=== PATIENT | female | born 1945 | race Caucasian/White ===

== ENCOUNTER → 2016-08-22 | Outpatient (CLI) | payer MEDICARE, OTHER ==
[~2016-08-22] MED LIST: ACLI400A2 IH; ALBU0.63 IH; ALBU90AE IH; ASPI-999 PO; BARIUM SUSPENSION 2.1% (VANILLA SILQ) 450 ML PO ONE; CALC600T12 PO; CATHETER FLUSH 10 ML SYR IV PRN; CETI10TA20 PO; CIPR-225 PO; CYCL1DRO OP; FLUT1DIS27 IH; GABA600T2 PO; HYDR25TA4 PO; IOHEXOL 350 MG/ML 100 ML (OMNIPAQUE 350) VIAL IV ONE; LUTE6CAP2 PO; METO-333 PO; METR500T PO; MONT10TA21 PO; MULT-35 PO; NS 100 ML (IVPB) BAG IV ONE; OMEGA XL PO; OMG1KC PO
--- NOTE | 2016-08-22 12:04 | Diagnostic Imaging Report ---
PROCEDURE: CT chest, abdomen, and pelvis with contrast. TECHNIQUE: Multiple contiguous axial images were obtained through the chest, abdomen, and pelvis after the administration of intravenous contrast. INDICATION: Bloating, bowel dysfunction, elevated tumor markers. Chest: A few areas of nonsolid nodularity likely scarring some of which are accompanied by cyst formation are present in the lung bases having a chronic appearance. No dominant lung mass and no findings felt suggestive of acute pneumonia. There are features of COPD. No oliver bronchiectasis. There is no hilar, mediastinal, or axillary lymphadenopathy. The aorta is calcified but patent and nonaneurysmal. There is a tiny hiatal hernia. There is healed or healing non-acute left rib fracture laterally at the eighth level. No acute chest wall pathology. Abdomen/ pelvis: Liver, gallbladder, bile ducts, spleen, adrenals, and pancreas negative. There are multiple bilateral renal cortical cysts with no enhancing or solid renal mass. There is no hydronephrosis. Some thickening of the king of the sigmoid colon over a length of at least 7 cm. There is some congestion and hyperdensity of the subtending mesentery. There is some adjacent rounded perisigmoidal lymph nodes measuring 7.5 mm maximal; at least three of these are present. I am uncertain if this is inflammatory or neoplastic. If not already performed, consider endoscopy. No perforation. This does not have the typical features of diverticulitis. There is no appendicitis. There is no ascites, abscess, hematoma, or fluid collection. The urinary bladder unremarkable. No pneumatosis or free air. There is aortoiliac and mesenteric atherosclerotic disease. There is severe plaque in the right greater than left external iliacs with likely hemodynamically significant degrees of stenosis. There were no findings suggestive of acute solid or hollow visceral end organ involvement by ischemia. IMPRESSION: Chest: COPD and chronic areas of parenchymal scarring. No adenopathy or effusion. Small hiatal hernia. Abdomen: Benign renal cysts. No abdominal adenopathy, obstruction, inflammatory process, or mass. Atherosclerotic disease without aneurysm. Pelvis: No abscess, perforation, or obstruction. Severe iliac atherosclerosis with likely hemodynamically significant stenoses of the bilateral external iliacs. Abnormal appearance of the thickened somewhat irregular-appearing sigmoid with perisigmoidal subcentimeter lymph nodes. This could be inflammatory or neoplastic. Consider endoscopic correlation. No other potential malignancy found at this exam. Dictated by: Dictated on workstation # [id number]
== END ==
LOC: RAD 09:13
PROVIDERS: ATTEND Internal Medicine Hematology & Oncology
DX: J44.9 Chronic obstructive pulmonary disease, unspecified (principal); C50.919 Malignant neoplasm of unspecified site of unspecified female breast; R97.8 Other abnormal tumor markers; R19.4 Change in bowel habit
CPT/HCPCS: 71260; 74177

== ENCOUNTER 2016-08-28 05:40 | Outpatient (CLI) | payer MEDICARE, OTHER ==
[~2016-08-28] VITALS: Ht 152.4 cm; Wt 49.9 kg
[2016-08-28] MEDS ORDERED: HYDR25TA4 PO (13:34)
[2016-08-28] MEDS ORDERED: METO-333 PO (13:34)
[2016-08-28] MEDS ORDERED: MULT-35 PO (13:34)
[2016-08-28] MEDS ORDERED: ASPI-999 PO (13:34)
[2016-08-28] MEDS ORDERED: FLUT1DIS27 IH (13:34)
[2016-08-28] MEDS ORDERED: MONT10TA21 PO (13:34)
[2016-08-28] MEDS ORDERED: ACLI400A2 IH (13:34)
[2016-08-28] MEDS ORDERED: GABA600T2 PO (13:34)
[2016-08-28] MEDS ORDERED: LUTE6CAP2 PO (13:34)
[2016-08-28] MEDS ORDERED: CETI10TA20 PO (13:34)
[2016-08-28] MEDS ORDERED: OMEGA XL PO (13:34)
[2016-08-28] MEDS ORDERED: ALBU0.63 IH (13:34)
[2016-08-28] MEDS ORDERED: ALBU90AE IH (13:34)
[2016-08-28] MEDS ORDERED: CALC600T12 PO (13:34)
[2016-08-28] MEDS ORDERED: OMG1KC PO (13:34)
[2016-08-28] MEDS ORDERED: CYCL1DRO OP (13:34)
[2016-08-29] MEDS ORDERED: CIPR-225 PO (13:11)
[2016-08-29] MEDS ORDERED: METR500T PO (13:11)
== END 2016-08-28 13:52 ==
LOC: PREOP 05:40
PROVIDERS: ATTEND Surgery
DX: Z01.818 Encounter for other preprocedural examination (principal); K21.9 Gastro-esophageal reflux disease without esophagitis; R19.4 Change in bowel habit

== ENCOUNTER 2016-08-29 10:33 | Day surgery (SDC) | payer MEDICARE, OTHER ==
[~2016-08-29] VITALS: Ht 152.4 cm; Wt 49.9 kg
[~2016-08-29 10:33] MED LIST changes: -BARIUM SUSPENSION 2.1% (VANILLA SILQ) 450 ML PO ONE; -CATHETER FLUSH 10 ML SYR IV PRN; -CIPR-225 PO; -IOHEXOL 350 MG/ML 100 ML (OMNIPAQUE 350) VIAL IV ONE; -METR500T PO; -NS 100 ML (IVPB) BAG IV ONE
[2016-08-29 10:40] VITALS: BP 141/68
[2016-08-29] MEDS ORDERED: NS IV 1000 ML 1,000 ML IV STA (10:40)
[2016-08-29] MEDS ORDERED: HURRICAINE EXT TUBE (BENZOCAINE) XX PRN (10:45)
[2016-08-29] MEDS ORDERED: NS IV 1000 ML 1,000 ML ONE (10:47)
[2016-08-29] MEDS ORDERED: MIDAZOLAM 2 MG/2 ML (VERSED) VIAL ONE (11:08)
[2016-08-29] MEDS ORDERED: proPOfol 200 MG/20 ML (DIPRIVAN) VIAL IV ONE (11:08)
--- NOTE | 2016-08-29 11:14 | Progress Note-Pre Operative ---
Pre-Operative Progress Note H&P Reviewed The H&P was reviewed, patient examined and no changes noted. Date H&P Reviewed: Aug 29, 2016 Time H&P Reviewed: 11:13 Pre-Operative Diagnosis: change in bowel habits, radiological changes on ct, anemia RENEE GRAVES DO Aug 29, 2016 11:13 am
--- NOTE | 2016-08-29 11:52 | Progress Note-Post Operative ---
Post-Operative Progess Note Surgeon (s)/Crate Liner (s) Surgeon RENEE GRAVES DO Crate Liner: 0 Pre-Operative Diagnosis change in bowel habits, radiological changes on ct, anemia Post-Operative Diagnosis small hiatal hernia, colon polyp cecum, inflammation area of cecum, diverticulitis of sigmoid Post-Op Procedure Note Date of Procedure: Aug 29, 2016 Name of Procedure Performed: egd and colonoscopy c hot bx polypectomy x 1, hot biopsy cecum, cold biosies of sigmoid colon Description of the Procedure: see note Findings of the Procedure see note Anesthesia Type per mda Estimated blood loss (mL): none Specimen(s) collected/removed cecum x2 sigmoid biopsies RENEE GRAVES DO Aug 29, 2016 11:52 am
[2016-08-29 12:00] VITALS: BP 132/68
[2016-08-29 13:00] VITALS: BP 150/58
[2016-08-29] MEDS ORDERED: CIPR-225 PO (13:11)
[2016-08-29] MEDS ORDERED: METR500T PO (13:11)
--- NOTE | 2016-08-29 13:12 | Discharge Inst-Simple/Standard ---
Discharge Inst-Standard Discharge Medications New, Converted or Re-Newed RX: Transmitted to Pharmacy Patient Instructions/Follow Up Plan of Care/Instructions/FU: Patient to follow up with Dr. Flor in clinic 2 weeks Take meds as directed. Call clinic with any questions. Clear liquids for 2 more days and then advance diet as tolerated. Activity as Tolerated: Yes Discharge Diet: Other Diet (clear liquids for 2 more days. ) BLADIMIR SWANSON APRN Aug 29, 2016 13:12
[2016-08-29 13:46] VITALS: BP 150/58
--- NOTE | 2016-08-31 09:36 | PROCEDURE REPORT ---
PROCEDURE PHYSICIAN: RENEE GRAVES DATE OF PROCEDURE: 08/29/2016 PREOPERATIVE DIAGNOSIS: Change in bowel habits, radiological changes on CT scan, anemia. POSTOPERATIVE DIAGNOSES: 1. Small hiatal hernia. 2. Colon polyp of the cecum. 3. Inflammation of the area of the cecum. 4. Diverticulitis of the sigmoid colon. PROCEDURE: 1. EGD. 2. Colonoscopy with hot biopsy polypectomy x1, hot biopsy of cecum and cold biopsies of the sigmoid colon. SURGEON: Chacho. ANESTHESIA: Per MDA soon. ESTIMATED BLOOD LOSS: None. COMPLICATIONS: None. INDICATIONS: The patient is a 71-year-old female who has had change in bowel habits and had radiological changes on CT scan and found to be anemic. She understands the risks and benefits of procedures and wished to proceed with procedures. Consent was signed on the chart. PROCEDURE: The patient was taken to the endoscopy suite, placed in left lateral recumbent position. Time out was performed. The scope was then inserted in the mouth down the esophagus, stomach and into the duodenum. There were no polyps, masses or ulcerations of the duodenum. The scope was slowly retracted back to the stomach where it was further insufflated. There were no polyps, masses or ulcerations or erythematous changes in the stomach where it was also retroflexed noting a small hiatal hernia. No other pathology noted. The scope was returned its normal position and slowly withdrawn back to the distal esophagus. There are no polyps, masses or ulcerations present within the esophagus and the scope was slowly retracted with completely removed noting no other pathology. COLONOSCOPY: Digital rectal exam was performed. There is no palpable polyps, masses, ulcerations. The scope was inserted in the rectum and advanced all of the way to the cecum with minimal difficulty. Prep was adequate. Once in the cecum there was a small polyp near the appendiceal orifice, hot biopsy polypectomy was performed. Just next to this area of the cecum there was also slight inflammation that is slightly raised either a flat polyp or just inflammation. Hot biopsy was performed. The scope was then slowly retracted back. There were no polyps, masses, ulcerations in the ascending colon, transverse colon, and descending colon. Within the sigmoid colon, there is an area of approximately 15 cm segment with some diverticulosis within this area that appears to be acute diverticulitis. There is inflammation circumferentially through this area. Cold biopsies were obtained through this area. No other pathology is noted. The scope was slowly retracted back until in the rectum, where it was also retroflexed noting no other pathology. The scope returned its normal position and slowly withdrawn until completely removed. RECOMMENDATIONS: The patient will be started on 10 days of Cipro and Flagyl. She is to stay on a clear liquid diet for 2 more days and then slowly advance diet as tolerated. If she has any worsening of condition, she should be reevaluated at that time. The patient will follow-up in the office in approximately 2 weeks. Further recommendations pending pathology results. Job ID: [id number] Dictated Date: 08/29/2016 11:56:11 Inside Wirer Date: 08/31/2016 09:17:39 / arlene
== END 2016-08-29 13:20 | disposition home or self-care (01) ==
LOC: ENDO 10:33
PROVIDERS: ATTEND Surgery
DX: D12.0 Benign neoplasm of cecum (principal); K52.9 Noninfective gastroenteritis and colitis, unspecified; K57.32 Diverticulitis of large intestine without perforation or abscess without bleeding; K21.9 Gastro-esophageal reflux disease without esophagitis; K44.9 Diaphragmatic hernia without obstruction or gangrene
CPT/HCPCS: 88305

== ENCOUNTER 2016-09-12 12:55 | Outpatient (RCR) | payer MEDICARE, OTHER ==
[~2016-09-12 12:55] MED LIST changes: +CIPR-225 PO; +METR500T PO
== END 2016-09-26 | disposition home or self-care (01) ==
LOC: ONC 12:55
PROVIDERS: ATTEND Internal Medicine Hematology & Oncology
DX: Z08 Encounter for follow-up examination after completed treatment for malignant neoplasm (principal); Z85.3 Personal history of malignant neoplasm of breast; M81.0 Age-related osteoporosis without current pathological fracture; I10 Essential (primary) hypertension; Z90.11 Acquired absence of right breast and nipple; Z79.899 Other long term (current) drug therapy
CPT/HCPCS: 99213

== ENCOUNTER 2016-09-13 10:51 | Outpatient (RCR) | payer MEDICARE, OTHER | END 2016-12-12 | disposition home or self-care (01) | LOC: LAB 10:51 | PROVIDERS: ATTEND Surgery | DX: R19.7 Diarrhea, unspecified (principal) | CPT/HCPCS: 87045; 87046; 87328; 87329; 87493 ==

== ENCOUNTER 2016-10-17 13:11 | Outpatient (RCR) | payer MEDICARE, OTHER | END 2017-01-15 | disposition home or self-care (01) | LOC: ONC 13:11 | PROVIDERS: ATTEND Internal Medicine Hematology & Oncology | DX: Z08 Encounter for follow-up examination after completed treatment for malignant neoplasm (principal); Z85.3 Personal history of malignant neoplasm of breast; M81.0 Age-related osteoporosis without current pathological fracture; I10 Essential (primary) hypertension; Z90.11 Acquired absence of right breast and nipple; Z79.899 Other long term (current) drug therapy | CPT/HCPCS: 99213 ==

== ENCOUNTER → 2017-01-11 | Outpatient (CLI) | payer MEDICARE, OTHER ==
[~2017-01-11] MED LIST changes: +CATHETER FLUSH 10 ML SYR IV PRN; +IOHEXOL 350 MG/ML 150 ML (OMNIPAQUE 350) VIAL IV ONE; +NS 100 ML (IVPB) BAG IV ONE
[2017-01-11 12:18] LABS: CREATININE SERUM 0.94 MG/DL (0.60-1.30)
--- NOTE | 2017-01-11 13:22 | Diagnostic Imaging Report ---
PROCEDURE: CT angiography of the chest with contrast. TECHNIQUE: Multiple contiguous axial images were obtained through the chest after uneventful bolus administration of intravenous contrast. Reconstructed CTA MIP acquisitions were also performed. INDICATION: Shortness of breath. The pulmonary arterial branches are well opacified and confirmed widely patent. No filling defect or PE. The thoracic aorta is patent and nonacute. There is no thoracic effusion or pneumothorax. No focal pulmonary consolidation. There is air trapping and COPD chronic. No dominant mass. Small subcentimeter subpleural scar in the right upper lobe posterolaterally stable from exam of August 2016. Visualized upper abdomen shows bilateral renal cortical cysts partly visualized with no acute abnormality. IMPRESSION: Widely patent pulmonary arteries, chronic COPD, and subpleural scar in the right upper lobe all stable. Benign renal cysts. No acute abnormality. Dictated by: Dictated on workstation # [id number]
== END ==
LOC: RAD 11:38
PROVIDERS: ATTEND Nurse Practitioner Family
DX: J44.9 Chronic obstructive pulmonary disease, unspecified (principal)
CPT/HCPCS: 36415; 71275; 82565; 84520

== ENCOUNTER → 2017-01-17 | Outpatient (CLI) | payer MEDICARE, OTHER ==
[~2017-01-17] MED LIST changes: -CATHETER FLUSH 10 ML SYR IV PRN; -IOHEXOL 350 MG/ML 150 ML (OMNIPAQUE 350) VIAL IV ONE; -NS 100 ML (IVPB) BAG IV ONE; +RT-ALBUTEROL SULF 2.5 MG/3 ML PRE-MIX VIAL IH ONE
== END ==
LOC: RT 12:53
PROVIDERS: ATTEND Nurse Practitioner Family
DX: J44.9 Chronic obstructive pulmonary disease, unspecified (principal)
CPT/HCPCS: 94060; 94640; 94726; 94729

== ENCOUNTER → 2017-06-04 | Outpatient (CLI) | payer MEDICARE, OTHER ==
[~2017-06-04] MED LIST changes: -RT-ALBUTEROL SULF 2.5 MG/3 ML PRE-MIX VIAL IH ONE
--- NOTE | 2017-06-04 15:41 | Diagnostic Imaging Report ---
INDICATION: Right breast carcinoma status post right mastectomy in May 2015. Patient complains of thoracic spine pain for six months. TECHNIQUE: Patient was administered 25.6 mCi of technetium 99m MDP intravenously and whole-body imaging was performed after a three hour delay. COMPARISON: Comparison is made with prior whole body bone scan from 07/09/2009. FINDINGS: There has been development of several abnormal foci of tracer accumulation within multiple left-sided anterior and posterior ribs. One of the posterior ribs approximately the left sixth posterior rib does show some elongation of the abnormal activity along the rib. Features are concerning for osseous metastatic disease. There is a vague area of increased uptake involving a right anterior rib, approximately the right anterior fourth rib. Tiny foci of abnormal uptake are identified in lower cervical as well as mid and lower thoracic spine, nonspecific and indeterminate. There is some uptake involving the left great toe, likely on a degenerative basis. IMPRESSION: There has been development of several abnormal foci of tracer accumulation involving the predominantly left-sided ribs, suspicious for osseous metastatic disease. There are some indeterminate foci in the lower cervical and midthoracic spine. MRI may be useful for further evaluation. Dictated by: Dictated on workstation # [id number]
== END ==
LOC: CARD 10:33
PROVIDERS: ATTEND Internal Medicine Hematology & Oncology
DX: M81.0 Age-related osteoporosis without current pathological fracture (principal); M54.9 Dorsalgia, unspecified; C50.911 Malignant neoplasm of unspecified site of right female breast; M89.9 Disorder of bone, unspecified; Z90.11 Acquired absence of right breast and nipple
CPT/HCPCS: 78306

== ENCOUNTER 2017-06-08 09:34 | Outpatient (RCR) | payer MEDICARE, OTHER ==
[~2017-06-08 09:34] MED LIST changes: -CYCL1DRO OP; +CYCL1DRO OU
[2017-06-08] MEDS ORDERED: IPRA3AMP IH (11:28)
[2017-06-08] MEDS ORDERED: OXYC-464 PO (11:28)
[2017-06-08] MEDS ORDERED: FLUT1BLS IH (11:28)
[2017-06-08] MEDS ORDERED: ROFL500T4 PO (11:28)
[2017-06-08] MEDS ORDERED: PROC5TAB52 PO (11:28)
[2017-06-29] MEDS ORDERED: RT-ALBUINH INH (11:12)
[2017-06-29] MEDS ORDERED: MONT10TA24 PO (11:12)
[2017-06-29] MEDS ORDERED: SCOP1PAT17 TD (11:12)
[2017-06-29] MEDS ORDERED: ALPR0.254 PO (11:43)
[2017-06-29] MEDS ORDERED: BIOF1TAB6 PO (11:43)
[2017-06-29] MEDS ORDERED: ONDA8TAB9 PO (11:43)
[2017-06-29] MEDS ORDERED: LUTE10TA PO (11:43)
[2017-06-29] MEDS ORDERED: ASPI-983 PO (11:43)
== END 2017-07-04 | disposition home or self-care (01) ==
LOC: ONC 09:34
PROVIDERS: ATTEND Internal Medicine Hematology & Oncology
DX: Z08 Encounter for follow-up examination after completed treatment for malignant neoplasm (principal); Z85.3 Personal history of malignant neoplasm of breast; M81.0 Age-related osteoporosis without current pathological fracture; I10 Essential (primary) hypertension; Z90.11 Acquired absence of right breast and nipple; Z79.899 Other long term (current) drug therapy
CPT/HCPCS: 99213

== ENCOUNTER 2017-06-08 10:47 | Outpatient (CLI) | payer MEDICARE, OTHER ==
[~2017-06-08] VITALS: Ht 152.4 cm; Wt 45.8 kg
[~2017-06-08 10:47] MED LIST changes: +CYCL1DRO OP; -CYCL1DRO OU
[2017-06-08 11:02] VITALS: BP 116/54
[2017-06-08] MEDS ORDERED: ROFL500T4 PO ×2 (11:28)
[2017-06-08] MEDS ORDERED: OXYC-464 PO ×2 (11:28)
[2017-06-08] MEDS ORDERED: IPRA3AMP IH ×2 (11:28)
[2017-06-08] MEDS ORDERED: PROC5TAB52 PO ×2 (11:28)
[2017-06-08] MEDS ORDERED: FLUT1BLS IH ×2 (11:28)
== END 2017-06-08 11:15 | disposition home or self-care (01) ==
LOC: PREOP 10:47
PROVIDERS: ATTEND Surgery
DX: Z01.818 Encounter for other preprocedural examination (principal); Z11.2 Encounter for screening for other bacterial diseases; C50.919 Malignant neoplasm of unspecified site of unspecified female breast; C79.9 Secondary malignant neoplasm of unspecified site
CPT/HCPCS: 87081

== ENCOUNTER → 2017-06-09 | Outpatient (CLI) | payer MEDICARE, OTHER ==
[~2017-06-09] MED LIST changes: +FLUT1BLS IH; +GADOBUTROL 7.5 MMOL/7.5 ML (GADAVIST) VIAL IV ONE; +IPRA3AMP IH; +OXYC-464 PO; +PROC5TAB52 PO; +ROFL500T4 PO
--- NOTE | 2017-06-09 16:05 | Diagnostic Imaging Report ---
TIME OF STUDY: 06/09/2017 at 3:44 p.m. REASON FOR EXAM: History of breast cancer and mastectomy status post chemotherapy. 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 COMPARISON: Bone scan from 06/04/2017. TECHNIQUE: Routine pre and post contrast multiplanar, multisequence MRI of the thoracic spine was obtained. FINDINGS: There is normal anatomic alignment of the thoracic spine. The visualized vertebral bodies demonstrate normal height, without evidence of compression fracture. There is T2 bright, T1 hypointense lesion at the right T2 pedicle, with enhancement. This is concerning for a metastatic lesion. A ill-defined focus at the superior plate of T10 is also T2 hyperintense enhancing, may represent degenerative change versus a metastatic lesion. There are multiple additional lesions throughout the thoracic spine, at T3, T8, T9 and T12, with the largest measuring 1.3 cm at the left T3 vertebral body. However, these lesions demonstrate T1 and T2 weighted hyperintensity as well as enhancement, which is more consistent with a hemangioma. The vertebral body heights are preserved. No acute fracture is seen. There is no spinal canal stenosis. The spinal cord signal appears normal. There is a small 1.2 cm cyst in the subcutaneous fat of the right back, likely sebaceous or epidermoid cyst. There is a large left renal cyst which appears stable since August 2016. IMPRESSION: 1. Lesion at the right T2 pedicle concerning for metastasis. Questionable lesion at the superior endplate of T10 may be metastatic versus degenerative change. 2. Multiple additional lesions throughout the thoracic spine which are more consistent with hemangiomas, with the largest at T3. 2. No spinal canal stenosis. No acute fracture is seen. Dictated by: Dictated on workstation # [id number]
--- NOTE | 2017-06-09 16:27 | Diagnostic Imaging Report ---
DATE: 06/09/2017 at 3:55 p.m. REASON FOR EXAM: Back pain with history of breast cancer and metastasis. COMPARISON: Bone scan from 06/04/2017. TECHNIQUE: Routine pre and post contrast enhanced multiplanar, multisequence MRI of the lumbar spine was obtained. FINDINGS: For the purposes of this exam there are five lumbar type vertebral bodies with the last well formed disk space designated L5-S1. There are T1 and T2 bright lesions in the lumbar spine, most notable at L1 which measures 12 mm in diameter. These are more consistent with hemangiomas given the T1 weighted hyperintensity, and appearance on the CT from 08/22/2016. There are, however, additional T2 bright lesions at L3, L4, and L5 which demonstrate [id number] enhancement and all measure approximately 10-11 mm in size. These lesions are T1 hypointense (image 8 and 13 of series 4). The vertebral body heights are preserved, no acute fracture is seen. There is marked disc height loss at L4-5, with mild grade 1 anterolisthesis at that level, and marked Schmorl's nodes. The conus terminates in appropriate position. There are numerous bilateral renal cysts. There is mild generalized atrophy of the musculature. The axial images demonstrate: T12-L1: Facet arthropathy. No spinal canal or foraminal stenosis. L1-L2: Facet arthropathy. No spinal canal or foraminal stenosis. L2-L3: Facet arthropathy, ligamentous infolding. No spinal canal or foraminal stenosis. L3-L4: Marked facet arthropathy, ligamentous infolding, mild diffuse disc bulge with posterior annular fissure. Mild right foraminal narrowing, moderate left foraminal stenosis. No spinal canal stenosis. L4-L5: Marked facet arthropathy, ligamentous infolding, posterior annular fissure, diffuse disc bulge. Moderate to severe bilateral foraminal stenosis. Mild bilateral foraminal narrowing. L5-S1: Facet arthropathy, disc bulge. No spinal canal or foraminal stenosis. IMPRESSION: 1. Enhancing lesions measuring 10-11 mm in size at L3, L4 and L5 concerning for metastasis. 2. Additional lesions in the lumbar spine most notable at L1, which are more consistent with hemangiomas. 3. Multilevel degenerative changes, most severe at L4-5, with moderate to severe foraminal stenosis at that level. Dictated by: Dictated on workstation # [id number]
--- NOTE | 2017-06-09 17:07 | Diagnostic Imaging Report ---
PROCEDURE: MR imaging of the brain with and without contrast. TECHNIQUE: Multiplanar, multisequence MR imaging of the brain was performed with and without contrast. INDICATION: History of breast cancer with mastectomy and chemotherapy treatments. 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 Worsening headaches and back pain. COMPARISON: None. FINDINGS: There is motion artifact on multiple sequences. The ventricles and cortical sulci are prominent. There is no midline shift or mass effect identified. No intraparenchymal or extraaxial hemorrhage or fluid collection is identified. There is no acute ischemia. There are multiple focal areas of nonspecific T2 bright signal in the periventricular and subcortical white matter, representing chronic small vessel ischemic change. No other focal parenchymal abnormalities are seen. The midline craniocervical anatomy is unremarkable. The major expected intracranial flow voids are seen. There are no focal calvarial lesions. Visualized paranasal sinuses demonstrate normal signal. There are bilateral lens implants. IMPRESSION: 1. No acute intracranial abnormalities. No acute ischemia, focal intra-axial mass or acute hemorrhage. No abnormal enhancing lesions to suggest metastatic disease. 2. Chronic Small vessel ischemic changes in the periventricular and subcortical white matter. 3. Generalized parenchymal volume loss. Dictated by: Dictated on workstation # [id number]
== END ==
LOC: RAD 13:02
PROVIDERS: ATTEND Internal Medicine Hematology & Oncology
DX: C50.819 Malignant neoplasm of overlapping sites of unspecified female breast (principal); M48.061 Spinal stenosis, lumbar region without neurogenic claudication; G93.89 Other specified disorders of brain; M89.8X8 Other specified disorders of bone, other site
CPT/HCPCS: 70553; 72157; 72158

== ENCOUNTER 2017-06-11 08:40 | Day surgery (SDC) | payer MEDICARE, OTHER ==
[~2017-06-11] VITALS: Ht 152.4 cm; Wt 45.8 kg
[~2017-06-11 08:40] MED LIST changes: -GADOBUTROL 7.5 MMOL/7.5 ML (GADAVIST) VIAL IV ONE
--- OUTSIDE RECORDS SUMMARY | 2017-06-11 08:53 | XMS REPORT | Continuity of Care Document ---
Author Author [facility] Organization [facility] Address Unknown Phone Unavailable Allergies Active Description Code Type Severity Reaction Onset Reported/Identified Relationship to Patient Clinical Status Yes No Allergy Information Available [id number] Drug Allergy Unknown N/A 2016 Yes procaine [id number] Drug Allergy Moderate FACE SWELLING 08/28/2016 Yes Sulfa (Sulfonamide Antibiotics) [id number] Drug Allergy Moderate SYNCOPE Medications There is no data. Problems Date Dx Coded Attending Type Code Diagnosis Diagnosed By 06/29/2014 AVIVA DUFF, LACHELLE Ot 401.9 06/29/2014 AVIVA DUFF, LACHELLE Ot 719.45 06/29/2014 AVVIA DUFF, LACHELLE Ot 733.00 06/29/2014 AVIVA DUFF, LACHELLE Ot V10.3 06/29/2014 AVIVA DUFF, LACHELLE Ot V45.71 06/29/2014 AVIVA DUFF, LACHELLE Ot V58.69 06/29/2014 AVIVA DUFF, LACHELLE Ot V67.2 06/04/2015 AVIVA DUFF, LACHELLE Ot I10 06/04/2015 AVIVA DUFF, LACHELLE Ot M81.0 06/04/2015 AVIVA DUFF, LACHELLE Ot Z08 06/04/2015 AVIVA DUFF, LACHELLE Ot Z79.899 06/04/2015 AVIVA DUFF, LACHELLE Ot Z85.3 06/04/2015 AVIVA DUFF, LACHELLE Ot Z90.11 06/28/2016 Ot V10.3 HX OF BREAST MALIGNANCY 06/28/2016 Ot V45.71 ACQUIRED ABSENCE OF BREAST AND NIPPLE 06/28/2016 Ot V58.69 OTH MED,LT, CURRENT USE 06/28/2016 Ot V67.2 CHEMOTHERAPY FOLLOW-UP 06/28/2016 Ot 401.9 HYPERTENSION NOS 06/28/2016 Ot 733.00 OSTEOPOROSIS NOS 06/28/2016 Ot V10.3 HX OF BREAST MALIGNANCY 06/28/2016 Ot V45.71 ACQUIRED ABSENCE OF BREAST AND NIPPLE 06/28/2016 Ot V58.69 OTH MED,LT, CURRENT USE 06/28/2016 Ot V67.2 CHEMOTHERAPY FOLLOW-UP 06/28/2016 LACHELLE CHICAS MD Ot 401.9 HYPERTENSION NOS 06/28/2016 LACHELLE CHICAS MD Ot 719.45 JOINT PAIN-PELVIS 06/28/2016 LACHELLE CHICAS MD Ot 733.00 OSTEOPOROSIS NOS 06/28/2016 LACHELLE CHICAS MD Ot V10.3 HX OF BREAST MALIGNANCY 06/28/2016 LACHELLE CHICAS MD Ot V15.82 HISTORY OF TOBACCO USE 06/28/2016 LACHELLE CHICAS MD Ot V45.71 ACQUIRED ABSENCE OF BREAST AND NIPPLE 06/28/2016 LACHELLE CHICAS MD Ot V58.69 OTH MED,LT,CURRENT USE 06/28/2016 LACHELLE CHICAS MD Ot V67.2 CHEMOTHERAPY FOLLOW-UP 06/28/2016 YOEL HARPER MD Ot 719.45 JOINT PAIN-PELVIS 06/28/2016 YOEL HARPER MD Ot 722.52 LUMB/LUMBOSAC DISC DEGEN 06/28/2016 LACHELLE CHICAS MD Ot 401.9 HYPERTENSION NOS 06/28/2016 LACHELLE CHICAS MD Ot 719.45 JOINT PAIN-PELVIS 06/28/2016 LACHELLE CHICAS MD Ot 733.00 OSTEOPOROSIS NOS 06/28/2016 LACHELLE CHICAS MD Ot V10.3 HX OF BREAST MALIGNANCY 06/28/2016 LACHELLE CHICAS MD Ot V45.71 ACQUIRED ABSENCE OF BREAST AND NIPPLE 06/28/2016 LACHELLE CHICAS MD Ot V58.69 OTH MED,LT,CURRENT USE 06/28/2016 LACHELLE CHICAS MD Ot V67.2 CHEMOTHERAPY FOLLOW-UP 06/28/2016 LACHELLE CHICAS MD Ot I10 ESSENTIAL (PRIMARY) HYPERTENSION 06/28/2016 LACHELLE CHICAS MD Ot M81.0 AGE-RELATED OSTEOPOROSIS W/O CURRENT PAT 06/28/2016 LACHELLE CHICAS MD, Ot Z08 ENCNTR FOR FOLLOW-UP EXAM AFTER TRTMT FO 06/28/2016 LACHELLE CHICAS MD Ot Z79.899 OTHER HUMAN SERVICES INSTRUCTOR (CURRENT) DRUG THERAPY 06/28/2016 LACHELLE CHICAS MD, Ot Z85.3 PERSONAL HISTORY OF MALIGNANT NEOPLASM O 06/28/2016 LACHELLE CHICAS MD, Ot Z90.11 ACQUIRED ABSENCE OF RIGHT BREAST AND NIP 08/03/2016 LACHELLE CHICAS MD, Ot I10 ESSENTIAL (PRIMARY) HYPERTENSION 08/03/2016 LACHELLE CHICAS MD, Ot M81.0 AGE-RELATED OSTEOPOROSIS W/O CURRENT PAT 08/03/2016 LACHELLE CHICAS MD, Ot Z08 ENCNTR FOR FOLLOW-UP EXAM AFTER TRTMT FO 08/03/2016 LACHELLE CHICAS MD, Ot Z79.899 OTHER MCC (CURRENT) DRUG THERAPY 08/03/2016 LACHELLE CHICAS MD, Ot Z85.3 PERSONAL HISTORY OF MALIGNANT NEOPLASM O 08/03/2016 LACHELLE CHICAS MD, Ot Z90.11 ACQUIRED ABSENCE OF RIGHT BREAST AND NIP 08/18/2016 LACHELLE CHICAS MD, Ot I10 ESSENTIAL (PRIMARY) HYPERTENSION 08/18/2016 LACHELLE CHICAS MD, Ot M81.0 AGE-RELATED OSTEOPOROSIS W/O CURRENT PAT 08/18/2016 LACHELLE CHICAS MD, Ot Z08 ENCNTR FOR FOLLOW-UP EXAM AFTER TRTMT FO 08/18/2016 LACHELLE CHICAS MD, Ot Z79.899 OTHER HUMAN SERVICES INSTRUCTOR (CURRENT) DRUG THERAPY 08/18/2016 LACHELLE CHICAS MD, Ot Z85.3 PERSONAL HISTORY OF MALIGNANT NEOPLASM O 08/18/2016 LACHELLE CHICAS MD, Ot Z90.11 ACQUIRED ABSENCE OF RIGHT BREAST AND NIP 08/23/2016 LACHELLE CHICAS MD Ot C50.919 MALIGNANT NEOPLASM OF UNSP SITE OF UNSPE 08/23/2016 LACHELLE CHICAS MD, Ot J44.9 CHRONIC OBSTRUCTIVE PULMONARY DISEASE, U 08/23/2016 LACHELLE CHICAS MD, Ot R19.4 CHANGE IN BOWEL HABIT 08/23/2016 LACHELLE CHICAS MD Ot R97.8 OTHER ABNORMAL TUMOR MARKERS 08/28/2016 RENEE GRAVES DO Ot K21.9 GASTRO-ESOPHAGEAL REFLUX DISEASE WITHOUT 08/28/2016 RENEE GRAVES DO Ot R19.4 CHANGE IN BOWEL HABIT 08/28/2016 RENEE GRAVES DO, Ot Z01.818 ENCOUNTER FOR OTHER PREPROCEDURAL EXAMIN 08/29/2016 GRAVES DORENEE D Ot D12.0 BENIGN NEOPLASM OF CECUM 08/29/2016 GRAVES DORENEE D Ot K21.9 GASTRO-ESOPHAGEAL REFLUX DISEASE WITHOUT 08/29/2016 GRAVES DOFLACOTT D Ot K44.9 DIAPHRAGMATIC HERNIA WITHOUT OBSTRUCTION 08/29/2016 RENEE GRAVES DO Ot K52.9 NONINFECTIVE GASTROENTERITIS AND COLITIS 08/29/2016 RENEE GRAVES DO Ot K57.32 DVTRCLI OF LG INT W/O PERFORATION OR ABS 09/03/2016 GRAVES DORENEE Ot K21.9 GASTRO-ESOPHAGEAL REFLUX DISEASE WITHOUT 09/03/2016 RENEE GRAVES DO Ot R19.4 CHANGE IN BOWEL HABIT 09/03/2016 GRAVES RENEE JACOME Ot Z01.818 ENCOUNTER FOR OTHER PREPROCEDURAL EXAMIN 09/08/2016 RENEE GRAVES DO Ot D12.0 BENIGN NEOPLASM OF CECUM 09/08/2016 GRAVES RENEE JACOME Ot K21.9 GASTRO-ESOPHAGEAL REFLUX DISEASE WITHOUT 09/08/2016 GRAVES RENEE JACOME Ot K44.9 DIAPHRAGMATIC HERNIA WITHOUT OBSTRUCTION 09/08/2016 RENEE GRAVES DO Ot K52.9 NONINFECTIVE GASTROENTERITIS AND COLITIS 09/08/2016 RENEE GRAVES DO D Ot K57.32 DVTRCLI OF LG INT W/O PERFORATION OR ABS 09/12/2016 RENEE GRAVES DO D Ot D12.0 BENIGN NEOPLASM OF CECUM 09/12/2016 RENEE GRAVES DO Ot K21.9 GASTRO-ESOPHAGEAL REFLUX DISEASE WITHOUT 09/12/2016 GRAVES FLACO JACOMETT D Ot K44.9 DIAPHRAGMATIC HERNIA WITHOUT OBSTRUCTION 09/12/2016 RENEE GRAVES DO D Ot K52.9 NONINFECTIVE GASTROENTERITIS AND COLITIS 09/12/2016 RENEE GRAVES DO D Ot K57.32 DVTRCLI OF LG INT W/O PERFORATION OR ABS 09/12/2016 LACHELLE CHICAS MD Ot C50.919 MALIGNANT NEOPLASM OF UNSP SITE OF UNSPE 09/12/2016 LACHELLE CHICAS MD Ot J44.9 CHRONIC OBSTRUCTIVE PULMONARY DISEASE, U 09/12/2016 LACHELLE CHICAS MD Ot R19.4 CHANGE IN BOWEL HABIT 09/12/2016 LACHELLE CHICAS MD Ot R97.8 OTHER ABNORMAL TUMOR MARKERS 09/13/2016 Ot V10.3 HX OF BREAST MALIGNANCY 09/13/2016 Ot V45.71 ACQUIRED ABSENCE OF BREAST AND NIPPLE 09/13/2016 Ot V58.69 OTH MED,LT, CURRENT USE 09/13/2016 Ot V67.2 CHEMOTHERAPY FOLLOW-UP 09/13/2016 Ot 401.9 HYPERTENSION NOS 09/13/2016 Ot 733.00 OSTEOPOROSIS NOS 09/13/2016 Ot V10.3 HX OF BREAST MALIGNANCY 09/13/2016 Ot V45.71 ACQUIRED ABSENCE OF BREAST AND NIPPLE 09/13/2016 Ot V58.69 OTH MED,LT, CURRENT USE 09/13/2016 Ot V67.2 CHEMOTHERAPY FOLLOW-UP 09/13/2016 LACHELLE CHICAS MD Ot 401.9 HYPERTENSION NOS 09/13/2016 LACHELLE CHICAS MD Ot 719.45 JOINT PAIN-PELVIS 09/13/2016 LACHELLE CHICAS MD Ot 733.00 OSTEOPOROSIS NOS 09/13/2016 LACHELLE CHICAS MD Ot V10.3 HX OF BREAST MALIGNANCY 09/13/2016 LACHELLE CHICAS MD Ot V15.82 HISTORY OF TOBACCO USE 09/13/2016 LACHELLE CHICAS MD Ot V45.71 ACQUIRED ABSENCE OF BREAST AND NIPPLE 09/13/2016 LACHELLE CHICAS MD Ot V58.69 OTH MED,LT,CURRENT USE 09/13/2016 LACHELLE CHICAS MD Ot V67.2 CHEMOTHERAPY FOLLOW-UP 09/13/2016 YOEL HARPER MD Ot 719.45 JOINT PAIN-PELVIS 09/13/2016 YOEL HAREPR MD Ot 722.52 LUMB/LUMBOSAC DISC DEGEN 09/13/2016 LACHELLE CHICAS MD Ot 401.9 HYPERTENSION NOS 09/13/2016 LACHELLE CHICAS MD Ot 719.45 JOINT PAIN-PELVIS 09/13/2016 LACHELLE CHICAS MD Ot 733.00 OSTEOPOROSIS NOS 09/13/2016 LACHELLE CHICAS MD Ot V10.3 HX OF BREAST MALIGNANCY 09/13/2016 LACHELLE CHICAS MD Ot V45.71 ACQUIRED ABSENCE OF BREAST AND NIPPLE 09/13/2016 LACHELLE CHICAS MD, Ot V58.69 OTH MED,LT,CURRENT USE 09/13/2016 LACHELLE CHICAS MD, Ot V67.2 CHEMOTHERAPY FOLLOW-UP 09/13/2016 LACHELLE CHICAS MD, Ot I10 ESSENTIAL (PRIMARY) HYPERTENSION 09/13/2016 LACHELLE CHICAS MD, Ot M81.0 AGE-RELATED OSTEOPOROSIS W/O CURRENT PAT 09/13/2016 LACHELLE CHICAS MD, Ot Z08 ENCNTR FOR FOLLOW-UP EXAM AFTER TRTMT FO 09/13/2016 LACHELLE CHICAS MD, Ot Z79.899 OTHER MCC (CURRENT) DRUG THERAPY 09/13/2016 LACHELLE CHICAS MD, Ot Z85.3 PERSONAL HISTORY OF MALIGNANT NEOPLASM O 09/13/2016 LACHELLE CHICAS MD, Ot Z90.11 ACQUIRED ABSENCE OF RIGHT BREAST AND NIP 09/13/2016 LACHELLE CHICAS MD, Ot I10 ESSENTIAL (PRIMARY) HYPERTENSION 09/13/2016 LACHELLE CHICAS MD, Ot M81.0 AGE-RELATED OSTEOPOROSIS W/O CURRENT PAT 09/13/2016 LACHELLE CHICAS MD, Ot Z08 ENCNTR FOR FOLLOW-UP EXAM AFTER TRTMT FO 09/13/2016 LACHELLE CHICAS MD, Ot Z79.899 OTHER MCC (CURRENT) DRUG THERAPY 09/13/2016 LACHELLE CHICAS MD, Ot Z85.3 PERSONAL HISTORY OF MALIGNANT NEOPLASM O 09/13/2016 LACHELLE CHICAS MD, Ot Z90.11 ACQUIRED ABSENCE OF RIGHT BREAST AND NIP 09/13/2016 LACHELLE CHICAS MD, Ot C50.919 MALIGNANT NEOPLASM OF UNSP SITE OF UNSPE 09/13/2016 LACHELLE CHICAS MD, Ot J44.9 CHRONIC OBSTRUCTIVE PULMONARY DISEASE, U 09/13/2016 LACHELLE CHICAS MD, Ot R19.4 CHANGE IN BOWEL HABIT 09/13/2016 LACHELLE CHICAS MD, Ot R97.8 OTHER ABNORMAL TUMOR MARKERS 09/14/2016 RENEE GRAVES DO Ot R19.7 DIARRHEA, UNSPECIFIED 09/15/2016 RENEE GRAVES DO Ot D12.0 BENIGN NEOPLASM OF CECUM 09/15/2016 RENEE GRAVES DO Ot K21.9 GASTRO-ESOPHAGEAL REFLUX DISEASE WITHOUT 09/15/2016 RENEE GRAVES DO Ot K44.9 DIAPHRAGMATIC HERNIA WITHOUT OBSTRUCTION 09/15/2016 RENEE GRAVES DO Ot K52.9 NONINFECTIVE GASTROENTERITIS AND COLITIS 09/15/2016 RENEE GRAVES DO Ot K57.32 DVTRCLI OF LG INT W/O PERFORATION OR ABS 09/26/2016 LACHELLE CHICAS MD, Ot I10 ESSENTIAL (PRIMARY) HYPERTENSION 09/26/2016 LACHELLE CHICAS MD, Ot M81.0 AGE-RELATED OSTEOPOROSIS W/O CURRENT PAT 09/26/2016 LACHELLE CHICAS MD, Ot Z08 ENCNTR FOR FOLLOW-UP EXAM AFTER TRTMT FO 09/26/2016 LACHELLE CHICAS MD, Ot Z79.899 OTHER MCC (CURRENT) DRUG THERAPY 09/26/2016 LACHELLE CHICAS MD, Ot Z85.3 PERSONAL HISTORY OF MALIGNANT NEOPLASM O 09/26/2016 LACHELLE CHICAS MD, Ot Z90.11 ACQUIRED ABSENCE OF RIGHT BREAST AND NIP 10/06/2016 LACHELLE CHICAS MD, Ot C50.919 MALIGNANT NEOPLASM OF UNSP SITE OF UNSPE 10/06/2016 LACHELLE CHICAS MD, Ot J44.9 CHRONIC OBSTRUCTIVE PULMONARY DISEASE, U 10/06/2016 LACHELLE CHICAS MD, Ot R19.4 CHANGE IN BOWEL HABIT 10/06/2016 LACHELLE CHICAS MD, Ot R97.8 OTHER ABNORMAL TUMOR MARKERS 11/02/2016 RENEE GRAVES DO Ot R19.7 DIARRHEA, UNSPECIFIED 11/17/2016 LACHELLE CHICAS MD, Ot I10 ESSENTIAL (PRIMARY) HYPERTENSION 11/17/2016 LACHELLE CHICAS MD, Ot M81.0 AGE-RELATED OSTEOPOROSIS W/O CURRENT PAT 11/17/2016 LACHELLE CHICAS MD, Ot Z08 ENCNTR FOR FOLLOW-UP EXAM AFTER TRTMT FO 11/17/2016 LACHELLE CHICAS MD, Ot Z79.899 OTHER MCC (CURRENT) DRUG THERAPY 11/17/2016 LACHELLE CHICAS MD, Ot Z85.3 PERSONAL HISTORY OF MALIGNANT NEOPLASM O 11/17/2016 LACHELLE CHICAS MD, Ot Z90.11 ACQUIRED ABSENCE OF RIGHT BREAST AND NIP 12/08/2016 LACHELLE CHICAS MD, Ot I10 ESSENTIAL (PRIMARY) HYPERTENSION 12/08/2016 LACHELLE CHICAS MD Ot M81.0 AGE-RELATED OSTEOPOROSIS W/O CURRENT PAT 12/08/2016 LACHELLE CHICAS MD Ot Z08 ENCNTR FOR FOLLOW-UP EXAM AFTER TRTMT FO 12/08/2016 LACHELLE CHICAS MD, Ot Z79.899 OTHER HUMAN SERVICES INSTRUCTOR (CURRENT) DRUG THERAPY 12/08/2016 LACHELLE CHICAS MD Ot Z85.3 PERSONAL HISTORY OF MALIGNANT NEOPLASM O 12/08/2016 LACHELLE CHICAS MD, Ot Z90.11 ACQUIRED ABSENCE OF RIGHT BREAST AND NIP 12/12/2016 GRAVES DO, RENEE D Ot R19.7 DIARRHEA, UNSPECIFIED 12/20/2016 LACHELLE CHICAS MD, Ot I10 ESSENTIAL (PRIMARY) HYPERTENSION 12/20/2016 LACHELLE CHICAS MD, Ot M81.0 AGE-RELATED OSTEOPOROSIS W/O CURRENT PAT 12/20/2016 LACHELLE CHICAS MD, Ot Z08 ENCNTR FOR FOLLOW-UP EXAM AFTER TRTMT FO 12/20/2016 LACHELLE CHICAS MD, Ot Z79.899 OTHER MCC (CURRENT) DRUG THERAPY 12/20/2016 LACHELLE CHICAS MD, Ot Z85.3 PERSONAL HISTORY OF MALIGNANT NEOPLASM O 12/20/2016 LACHELLE CHICAS MD Ot Z90.11 ACQUIRED ABSENCE OF RIGHT BREAST AND NIP 01/15/2017 LACHELLE CHICAS MD, Ot I10 ESSENTIAL (PRIMARY) HYPERTENSION 01/15/2017 LACHELLE CHICAS MD Ot M81.0 AGE-RELATED OSTEOPOROSIS W/O CURRENT PAT 01/15/2017 ALCHELLE CHICAS MD, Ot Z08 ENCNTR FOR FOLLOW-UP EXAM AFTER TRTMT FO 01/15/2017 LACHELLE CHICAS MD, Ot Z79.899 OTHER HUMAN SERVICES INSTRUCTOR (CURRENT) DRUG THERAPY 01/15/2017 LACHELLE CHICAS MD Ot Z85.3 PERSONAL HISTORY OF MALIGNANT NEOPLASM O 01/15/2017 LACHELLE CHICAS MD, Ot Z90.11 ACQUIRED ABSENCE OF RIGHT BREAST AND NIP 02/02/2017 SHON KOLB APRN Ot J44.9 CHRONIC OBSTRUCTIVE PULMONARY DISEASE, U 03/02/2017 SHON KOLB APRN Ot J44.9 CHRONIC OBSTRUCTIVE PULMONARY DISEASE, U 03/21/2017 SHON KOLB APRN Ot J44.9 CHRONIC OBSTRUCTIVE PULMONARY DISEASE, U 04/09/2017 SHON KOLB APRN Ot J44.9 CHRONIC OBSTRUCTIVE PULMONARY DISEASE, U 06/05/2017 LACHELLE CHICAS MD, Ot I10 ESSENTIAL (PRIMARY) HYPERTENSION 06/05/2017 LACHELLE CHICAS MD, Ot M81.0 AGE-RELATED OSTEOPOROSIS W/O CURRENT PAT 06/05/2017 LACHELLE CHICAS MD, Ot Z08 ENCNTR FOR FOLLOW-UP EXAM AFTER TRTMT FO 06/05/2017 LACHELLE CHICAS MD, Ot Z79.899 OTHER HUMAN SERVICES INSTRUCTOR (CURRENT) DRUG THERAPY 06/05/2017 LACHELLE CHICAS MD, Ot Z85.3 PERSONAL HISTORY OF MALIGNANT NEOPLASM O 06/05/2017 LACHELLE CHICAS MD, Ot Z90.11 ACQUIRED ABSENCE OF RIGHT BREAST AND NIP 06/05/2017 LACHELLE CHICAS MD, Ot C50.911 MALIGNANT NEOPLASM OF UNSP SITE OF RIGHT 06/05/2017 LACHELLE CHICAS MD, Ot M54.9 DORSALGIA, UNSPECIFIED 06/05/2017 LACHELLE CHICAS MD, Ot M81.0 AGE-RELATED OSTEOPOROSIS W/O CURRENT PAT 06/05/2017 LACHELLE CHICAS MD, Ot M89.9 DISORDER OF BONE, UNSPECIFIED 06/05/2017 LACHELLE CHICAS MD, Ot Z90.11 ACQUIRED ABSENCE OF RIGHT BREAST AND NIP 06/08/2017 Ot 401.9 HYPERTENSION NOS 06/08/2017 Ot 733.00 OSTEOPOROSIS NOS 06/08/2017 Ot V10.3 HX OF BREAST MALIGNANCY 06/08/2017 Ot V45.71 ACQUIRED ABSENCE OF BREAST AND NIPPLE 06/08/2017 Ot V58.69 OTH MED,LT, CURRENT USE 06/08/2017 Ot V67.2 CHEMOTHERAPY FOLLOW-UP 06/08/2017 LACHELLE CHICAS MD Ot 401.9 HYPERTENSION NOS 06/08/2017 LACHELLE CHICAS MD Ot 719.45 JOINT PAIN-PELVIS 06/08/2017 LACHELLE CHICAS MD Ot 733.00 OSTEOPOROSIS NOS 06/08/2017 LACHELLE CHICAS MD Ot V10.3 HX OF BREAST MALIGNANCY 06/08/2017 LACHELLE CHICAS MD Ot V15.82 HISTORY OF TOBACCO USE 06/08/2017 LACHELLE CHICAS MD Ot V45.71 ACQUIRED ABSENCE OF BREAST AND NIPPLE 06/08/2017 LACHELLE CHICAS MD, Ot V58.69 OTH MED,LT,CURRENT USE 06/08/2017 LACHELLE CHICAS MD, Ot V67.2 CHEMOTHERAPY FOLLOW-UP 06/08/2017 YOEL HARPER MD Ot 719.45 JOINT PAIN-PELVIS 06/08/2017 YOEL HARPER MD Ot 722.52 LUMB/LUMBOSAC DISC DEGEN 06/08/2017 LACHELLE CHICAS MD Ot 401.9 HYPERTENSION NOS 06/08/2017 LACHELLE CHICAS MD, Ot 719.45 JOINT PAIN-PELVIS 06/08/2017 LACHELLE CHICAS MD Ot 733.00 OSTEOPOROSIS NOS 06/08/2017 LACHELLE CHICAS MD, Ot V10.3 HX OF BREAST MALIGNANCY 06/08/2017 LACHELLE CHICAS MD, Ot V45.71 ACQUIRED ABSENCE OF BREAST AND NIPPLE 06/08/2017 LACHELLE CHICAS MD, Ot V58.69 OTH MED,LT,CURRENT USE 06/08/2017 LACHELLE CHICAS MD, Ot V67.2 CHEMOTHERAPY FOLLOW-UP 06/08/2017 LACHELLE CHICAS MD, Ot I10 ESSENTIAL (PRIMARY) HYPERTENSION 06/08/2017 LACHELLE CHICAS MD, Ot M81.0 AGE-RELATED OSTEOPOROSIS W/O CURRENT PAT 06/08/2017 LACHELLE CHICAS MD, Ot Z08 ENCNTR FOR FOLLOW-UP EXAM AFTER TRTMT FO 06/08/2017 LACHELLE CHICAS MD, Ot Z79.899 OTHER HUMAN SERVICES INSTRUCTOR (CURRENT) DRUG THERAPY 06/08/2017 LACHELLE CHICAS MD, Ot Z85.3 PERSONAL HISTORY OF MALIGNANT NEOPLASM O 06/08/2017 LACHELLE CHICAS MD, Ot Z90.11 ACQUIRED ABSENCE OF RIGHT BREAST AND NIP 06/08/2017 LACHELLE CHICAS MD, Ot C50.919 MALIGNANT NEOPLASM OF UNSP SITE OF UNSPE 06/08/2017 LACHELLE CHICAS MD, Ot J44.9 CHRONIC OBSTRUCTIVE PULMONARY DISEASE, U 06/08/2017 LACHELLE CHICAS MD Ot R19.4 CHANGE IN BOWEL HABIT 06/08/2017 LACHELLE CHICAS MD Ot R97.8 OTHER ABNORMAL TUMOR MARKERS 06/08/2017 RENEE GRAVES DO Ot R19.7 DIARRHEA, UNSPECIFIED 06/08/2017 SHON KOLB APRN Ot J44.9 CHRONIC OBSTRUCTIVE PULMONARY DISEASE, U 06/08/2017 SHON KOLB APRN Ot J44.9 CHRONIC OBSTRUCTIVE PULMONARY DISEASE, U 06/08/2017 LACHELLE CHICAS MD Ot I10 ESSENTIAL (PRIMARY) HYPERTENSION 06/08/2017 LACHELLE CHICAS MD, Ot M81.0 AGE-RELATED OSTEOPOROSIS W/O CURRENT PAT 06/08/2017 LACHELLE CHICAS MD, Ot Z08 ENCNTR FOR FOLLOW-UP EXAM AFTER TRTMT FO 06/08/2017 LACHELLE CHICAS MD, Ot Z79.899 OTHER MCC (CURRENT) DRUG THERAPY 06/08/2017 LACHELLE CHICAS MD, Ot Z85.3 PERSONAL HISTORY OF MALIGNANT NEOPLASM O 06/08/2017 LACHELLE CHICAS MD, Ot Z90.11 ACQUIRED ABSENCE OF RIGHT BREAST AND NIP 06/08/2017 LACHELLE CHICAS MD, Ot C50.911 MALIGNANT NEOPLASM OF UNSP SITE OF RIGHT 06/08/2017 LACHELLE CHICAS MD, Ot M54.9 DORSALGIA, UNSPECIFIED 06/08/2017 LACHELLE CHICAS MD, Ot M81.0 AGE-RELATED OSTEOPOROSIS W/O CURRENT PAT 06/08/2017 LACHELLE CHICAS MD, Ot M89.9 DISORDER OF BONE, UNSPECIFIED 06/08/2017 LACHELLE CHICAS MD, Ot Z90.11 ACQUIRED ABSENCE OF RIGHT BREAST AND NIP Procedures There is no data. Results Test Result Range Methicillin resistant Staphylococcus aureus (MRSA) screening culture - 11:10 Methicillin resistant Staphylococcus aureus (MRSA) screening culture NEG NRG Encounters ACCT No. Visit Date/Time Discharge Status Pt. Type Provider Facility Loc./Unit Complaint [id number] 06/08/2017 10:47:00 06/08/2017 11:15:00 DIS Outpatient RENEE GRAVES DO [facility] PREOP METASTATIC BREAST CANCER [id number] 06/04/2017 10:33:00 06/04/2017 23:59:59 CLS Outpatient LACHELLE CHICAS MD [facility] CARD M81.0 OSTEOPOROSIS [id number] 01/17/2017 12:53:00 01/17/2017 23:59:59 CLS Outpatient SHON KOLB APRN [facility] RT COPD [id number] 10/17/2016 13:11:00 01/15/2017 00:01:00 DIS Outpatient LACHELLE CHICAS MD [facility] ONC [id number] 01/11/2017 11:38:00 01/11/2017 23:59:59 CLS Outpatient SHON KOLB APRN [facility] RAD COPD J44.9 [id number] 12/13/2016 00:16:00 12/13/2016 23:59:59 CLS Preadmit RENEE GRAVES DO [facility] LAB DIARREHEA [id number] 09/13/2016 10:51:00 12/12/2016 00:01:00 DIS Outpatient RENEE GRAVES DO [facility] LAB DIARREHEA [id number] 09/12/2016 12:55:00 09/26/2016 00:01:00 DIS Outpatient LACHELLE CHICAS MD [facility] ONC [id number] 08/29/2016 10:33:00 08/29/2016 13:20:00 DIS Outpatient RENEE GRAVES DO [facility] ENDO GERD, CHANGE BOWEL HABITS [id number] 08/28/2016 05:40:00 08/28/2016 13:52:00 DIS Outpatient RENEE GRAVES DO [facility] PREOP COLONOSCOPY, EGD [id number] 08/22/2016 09:13:00 08/22/2016 23:59:59 CLS Outpatient LACHELLE CHICAS MD [facility] RAD INFILTRATING DUCT CARCINOMA OF BREAST [id number] 05/25/2015 12:32:00 05/25/2015 23:59:59 CLS Outpatient LACHELLE CHICAS MD [facility] ONC [id number] 05/26/2014 12:53:00 05/26/2014 23:59:59 CLS Outpatient LACHELLE CHICAS MD [facility] ONC [id number] 06/24/2013 09:40:00 06/24/2013 23:59:59 CLS Outpatient MEREDITH DUFF, YOEL Lassiter [facility] RAD LT HIP PAIN,LUMBAGO [id number] 05/27/2013 12:55:00 05/27/2013 23:59:59 CLS Outpatient AVIVA DUFF, LACHELLE [facility] ONC [id number] 06/11/2017 10:30:00 PEN Preadmit RENEE GRAVES DO [facility] METASTATIC BREAST CANCER [id number] 06/09/2017 13:15:00 PEN Preadmit MANAV MCCLURE MD [facility] RAD C50.919 METASTATIC BREAST CANCER [id number] 06/08/2017 09:34:00 ACT Outpatient AVIVA DUFF, LACHELLE [facility] ONC [id number] 04/16/2012 12:56:00 Document Registration [id number] 04/18/2011 14:02:00 Document Registration
[2017-06-11] MEDS ORDERED: HEParin (CENTRAL IV FLUSH) 500 UNIT/5 ML SYR ONE (08:59)
[2017-06-11] MEDS ORDERED: LIDOCAINE 1% INJ 20 ML (XYLOCAINE) VIAL ONE (08:59)
[2017-06-11] MEDS ORDERED: 0.9% SODIUM CHLORIDE PF INJ 20 ML VIAL ONE (08:59)
[2017-06-11] MEDS ORDERED: BUPIVACAINE 0.5% 30 ML (SENSORCAINE) VIAL ONE (08:59)
[2017-06-11 09:00] VITALS: BP 153/99
[2017-06-11] MEDS ORDERED: ONDANSETRON 4 MG/2 ML (SDV) Z0FRAN ONE ×2 (09:23→10:35)
[2017-06-11] MEDS ORDERED: SCOPOLAMINE 1.5 MG (TRANSDERM-SCOP) PATCH ONE (09:23)
[2017-06-11] MEDS ORDERED: FAMOTIDINE 20MG/2ML IV (PEPCID) ONE (09:23)
[2017-06-11] MEDS ORDERED: fentaNYL INJECTION 100 MCG/2 ML AMP ONE (09:38)
[2017-06-11] MEDS ORDERED: ONDANSETRON 4 MG/2 ML (SDV) Z0FRAN IV ONE (09:45)
[2017-06-11] MEDS ORDERED: FAMOTIDINE 20MG/2ML IV (PEPCID) IV ONE (09:45)
[2017-06-11] MEDS ORDERED: fentaNYL INJECTION 100 MCG/2 ML AMP IV ONE (09:45)
[2017-06-11] MEDS ORDERED: SCOPOLAMINE 1.5 MG (TRANSDERM-SCOP) PATCH TOP ONE (09:45)
[2017-06-11] MEDS ORDERED: LACTATED RINGERS 1,000 ML IV PRN (09:46)
[2017-06-11] MEDS ORDERED: ceFAZolin 1,000 MG (ANCEF) VIAL ONE (10:03)
[2017-06-11] MEDS ORDERED: D5W 50 ML IVPB SOLUTION 50 ML IV ONE (10:03)
[2017-06-11] MEDS ORDERED: PROPOFOL INJECTION 50 ML IV ONE ×2 (10:04→11:01)
[2017-06-11] MEDS ORDERED: MIDAZOLAM 2 MG/2 ML (VERSED) VIAL ONE (10:06)
[2017-06-11] MEDS ORDERED: ceFAZolin 1 GM/NS 50 ML IVPB IV ONE ×2 (11:15)
--- NOTE | 2017-06-11 11:32 | Progress Note-Post Operative ---
Post-Operative Progess Note Surgeon (s)/Nurse Orthopedic (s) Surgeon RENEE GRAVES DO Nurse Orthopedic: na Pre-Operative Diagnosis metastatic breast cancer Post-Operative Diagnosis same Procedure & Operative Findings Date of Procedure 06/11/17 Procedure Performed/Findings u/s guided attempted left IJ port placment and left IJ venogram, right IJ u/s guided port placement Anesthesia Type mac c local Estimated Blood Loss Estimated blood loss (mL): min Specimens/Packing Specimens Removed none RENEE GRAVES DO Jun 11, 2017 11:32
--- NOTE | 2017-06-11 11:35 | Discharge Inst-Simple/Standard ---
Discharge Inst-Standard Patient Instructions/Follow Up Plan of Care/Instructions/FU: 2 weeks [place] Activity as Tolerated: No Discharge Diet: Regular Diet Other Inst to Patient Follow up Appt: Make appointment for 2 week. Instructions: No lifting greater than 10 pounds. No strenuous activity. May shower in 24 hours, no tub bath or soaking. Use incentive spirometer at home as directed. No Smoking Skin/Wound Care: You have special glue over incision it will fall off on its own. Place ice pack on 15 min off 30 min and repeat to reduce swelling and discomfort. Symptoms to Report: Appetite Changes, Extremity Discoloration, Numbness/Tingling, Swelling Increased , Bleeding Excessive, Eyesight Changes, Pain Increased, Urine Color Change, Constipation(Persistent), Fever over 101 degree F, Pain/Pressure in chest, Urinating Difficulty, Cough Up/Vomit Blood, Heart Beat Irreg/Pounding, Pain/ Pressure in jaw, Vaginal Bleeding Increase, Cramps in feet or legs, Lightheadedness, Pain/Pressure in shoulder, Diarrhea(Persistent), Memory Changes Suddenly, Questions/Concerns, Weight gain consecutive days, Dizziness/ Fainting, Nausea/Vomiting, Shortness of Breath, Weight gain over 2 pounds If questions or concerns contact your physician Or seek help at emergency department. RENEE GRAVES DO Jun 11, 2017 11:35
[2017-06-11 11:38] LABS: BASOPHILS % (AUTO) 1 % (0-10); EOSINOPHILS # (AUTO) 0.1 10^3/uL (0.0-0.3); EOSINOPHILS % (AUTO) 1 % (0-10); HEMATOCRIT 28 % (35-52); HEMOGLOBIN 9.1 G/DL (11.5-16.0); LYMPHOCYTES # (AUTO) 0.7 X 10^3 (1.0-4.0); LYMPHOCYTES % (AUTO) 11 % (12-44); MEAN CORPUSCULAR HEMOGLOBIN 28 PG (25-34); MEAN CORPUSCULAR HGB CONC 32 G/DL (32-36); MEAN CORPUSCULAR VOLUME 86 FL (80-99); MEAN PLATELET VOLUME 10.6 FL (7.4-10.4); MONOCYTES # (AUTO) 0.8 X 10^3 (0.0-1.0); MONOCYTES % (AUTO) 12 % (0-12); NEUTROPHILS # (AUTO) 4.9 X 10^3 (1.8-7.8); NEUTROPHILS % (AUTO) 75 % (42-75); PLATELET COUNT 356 10^3/uL (130-400); RED BLOOD COUNT 3.28 10^6/uL (4.35-5.85); RED CELL DISTRIBUTION WIDTH 13.6 % (10.0-14.5); WHITE BLOOD COUNT 6.5 10^3/uL (4.3-11.0)
--- NOTE | 2017-06-11 11:44 | Diagnostic Imaging Report ---
INDICATION: PowerPort placement. FINDINGS: Fluoroscopy was provided in the OR for PowerPort placement. 30 seconds of fluoroscopic time was utilized. There appears to be a catheter on the left side in the region of the left brachycephalic vein. Contrast is identified in the left brachycephalic and SVC. IMPRESSION: Fluoroscopy for port placement. Dictated by: Dictated on workstation # [id number]
[2017-06-11] MEDS ORDERED: fentaNYL INJECTION 100 MCG/2 ML AMP IVP PRN (11:45)
[2017-06-11 11:53] LABS: BAND NEUTROPHILS 0 %; BASOPHILS % (MANUAL) 0 %; ELLIPT/OVALOCYTES SLIGHT; EOSINOPHILS % (MANUAL) 2 %; LYMPHOCYTES % (MANUAL) 12 %; MONOCYTES % (MANUAL) 6 %; NEUTROPHILS % (MANUAL) 80 %
[2017-06-11 12:05] VITALS: BP 104/64
[2017-06-11 12:08] LABS: ALANINE AMINOTRANSFERASE 10 U/L (0-55); ALBUMIN 3.4 GM/DL (3.2-4.5); ALKALINE PHOSPHATASE 53 U/L (40-136); BILIRUBIN,TOTAL 0.3 MG/DL (0.1-1.0); BUN/CREATININE RATIO 16; CALCIUM 7.9 MG/DL (8.5-10.1); CARBON DIOXIDE 22 MMOL/L (21-32); CHLORIDE 104 MMOL/L (98-107); GFR ESTIMATED > 60; GLUCOSE 81 MG/DL (70-105); POTASSIUM 3.3 MMOL/L (3.6-5.0); SODIUM 141 MMOL/L (135-145); TOTAL PROTEIN 5.9 GM/DL (6.4-8.2)
[2017-06-11 12:35] VITALS: BP 126/70
--- NOTE | 2017-06-11 12:51 | Diagnostic Imaging Report ---
INDICATION: Power port placement. FINDINGS: The heart size is normal. The lungs are clear. There is no pleural effusion or pneumothorax. The mediastinum is unremarkable. An Infusaport catheter overlies the right hemithorax and has its tip in the upper superior vena cava. IMPRESSION: The Infusaport catheter has its tip in the upper superior vena cava. No other acute cardiopulmonary abnormality. Dictated by: Dictated on workstation # [id number]
[2017-06-11 13:00] VITALS: BP 126/70
--- NOTE | 2017-06-11 22:21 | OPERATIVE REPORT ---
DATE OF SERVICE: 06/11/2017 PREOPERATIVE DIAGNOSIS: Metastatic breast cancer. POSTOPERATIVE DIAGNOSIS: Metastatic breast cancer. PROCEDURE: Ultrasound-guided attempted left internal jugular port placement and left internal jugular venogram with right internal jugular ultrasound-guided port placement. SURGEON: Renee Flor DO ANESTHESIA: MAC with local. ESTIMATED BLOOD LOSS: Minimal. COMPLICATIONS: None. INDICATIONS: The patient is a 72-year-old female with metastatic breast cancer. She understands risks and benefits of port placement. Consent was signed in the chart. DESCRIPTION OF PROCEDURE: The patient was taken to the operating suite. She was prepped and draped in sterile fashion. Surgical pause was performed. The patient was inspected using ultrasound to the left internal jugular vein. Micro access needle was used to access the left internal jugular vein. The micro access wire went without any difficulty down into the superior vena cava. A small stab incision was made. A micro access dilator was then advanced over the wire and the wire was removed. The regular guidewire was then inserted and the guidewire was unable to get into the superior vena cava towards the heart. It kept going up into the right side of the neck. The patient was repositioned and wire was withdrawn and inserted multiple times and was unable to get this to go down. The wire was removed and a venogram was then performed demonstrating the anatomy appearing normal and that we were in the venous system, therefore the guidewire was then inserted through the sheath again and attempted to be manipulated into the superior portion of the vena cava. This was unsuccessful. Therefore, it was decided to move to the right internal jugular vein. The right internal jugular vein was located using ultrasound. Local anesthetic was used to infiltrate the area. The right internal jugular vein was accessed, dark nonpulsatile blood was withdrawn. The guidewire was inserted through the needle and the needle was removed. The wire was then secured. Fluoroscopy was used to ensure proper placement. The right neck and chest were then infiltrated with 1% lidocaine and 0.5% Marcaine 50:50 ratio to anesthetize the neck and right chest. A 15-blade scalpel was used to make a skin incision over the right chest and a pocket was created. Under direct visualization of fluoroscopy, the dilator sheath was then advanced over the guidewire. The wire and dilator were removed. The [place] catheter was inserted through the sheath and the sheath was then removed. The catheter was then tunneled down towards the right chest where the pocket was created. Fluoroscopy was used to position the catheter to proper length and the port was then attached to the catheter in the usual fashion. The port was inserted into the pocket on the chest and then accessed. It was accessed and flushed without difficulty. The subcutaneous tissues were then reapproximated with 3-0 Vicryl. The areas were then washed and dried of all the incisions and Dermabond was placed over the incisions. Blood draw was performed on labs that were requested by the cancer center and the port was deaccessed. The patient tolerated procedure well without any complications. She was taken to the recovery room in stable condition. Chest x-ray pending. Job ID: [id number] DocumentID: [id number] Dictated Date: 06/11/2017 12:54:34 Director Of Technology Date: 06/11/2017 19:34:48 Dictated By: RENEE FLOR DO
== END 2017-06-11 13:00 | disposition home or self-care (01) ==
LOC: SDC 08:40
PROVIDERS: ATTEND Surgery
DX: C50.919 Malignant neoplasm of unspecified site of unspecified female breast (principal); C79.51 Secondary malignant neoplasm of bone; C78.89 Secondary malignant neoplasm of other digestive organs; I10 Essential (primary) hypertension; J45.909 Unspecified asthma, uncomplicated; Z87.891 Personal history of nicotine dependence; J43.8 Other emphysema; K21.9 Gastro-esophageal reflux disease without esophagitis; Z79.899 Other long term (current) drug therapy
CPT/HCPCS: 36415; 71045; 80053; 85007; 85027; 86300